=== PATIENT | female | born 1980 | race Caucasian/White ===

== ENCOUNTER 2017-06-20 11:56 | Inpatient (IN) | payer BC ==
[~2017-06-20] VITALS: Ht 167.6 cm; Wt 121.3 kg
[2017-06-20] MEDS ORDERED: IV NORMAL SALINE 1,000ML 1,000 ML IV ONE (12:15)
--- NOTE | 2017-06-20 12:34 | PHYS DOC ---
Past History Past Medical History: No Pertinent History, Other Past Surgical History: No Surgical History Smoking: Non-smoker Alcohol Use: None Drug Use: None Adult General Chief Complaint Chief Complaint: HEADACHE HPI HPI Patient is a pleasant 37-year-old female with a history of chronic headache for the last 3 weeks was recently diagnosed with potential pseudotumor cerebri with left eye blindness secondary to vision changes and increased CSF sigmoidoscopic sheets specifically the left greater than right. She is not received any specific treatment for pseudotumor cerebri came in for an evaluation of her headache. Her headache is worse with exertion and bending over, it is constant described as global. There is some changes in vision within the left eye at this continuously ebbing and flowing and noted by ophthalmology to be associated with papilledema. Patient denies any fevers, chills, neck pain, local trauma to her head. She further denies any recent URI symptoms, nausea, vomiting, diarrhea or chest pain. Review of Systems Review of Systems Constitutional: Denies fever or chills [] Eyes: Denies change in visual acuity, redness, or eye pain [] HENT: Denies nasal congestion or sore throat [] Respiratory: Denies cough or shortness of breath [] Cardiovascular: No additional information not addressed in HPI [] GI: Denies abdominal pain, vomiting, bloody stools or diarrhea, positive nausea [] : Denies dysuria or hematuria [] Musculoskeletal: Denies back pain or joint pain [] Integument: Denies rash or skin lesions [] Neurologic: positive headache, no weakness just blurred vision in left eye, known hx of papillary edema Endocrine: Denies polyuria or polydipsia [] All other systems were reviewed and found to be within normal limits, except as documented in this note. Physical Exam Physical Exam Vital signs on the chart are within normal Constitutional: Well developed, well nourished, no acute distress, non-toxic appearance. obviously uncomfortable.[] HENT: Normocephalic, atraumatic, bilateral external ears normal, oropharynx moist, no oral exudates, nose normal. [] Eyes: PERRLA, EOMI, conjunctiva normal, no discharge. [] Neck: Normal range of motion, no tenderness, supple, no stridor. [] Cardiovascular:Heart rate regular rhythm, no murmur [] Lungs & Thorax: Bilateral breath sounds clear to auscultation [] Abdomen: Bowel sounds normal, soft, no tenderness, no masses, no pulsatile masses. [] Skin: Warm, dry, no erythema, no rash. [] Back: No tenderness, no CVA tenderness. [] Extremities: No tenderness, no cyanosis, no clubbing, ROM intact, no edema. [] Neurologic: Alert and oriented X 3, normal motor function, normal sensory function, no focal deficits noted. [] Psychologic: Affect normal, judgement normal, mood normal. [] strike scale by hx and pe is only 1 based on vision changes. 1a. Level of consciousness: 0 = Alert; keenly responsive. 1 = Not alert; but arousable by minor stimulation to obey, answer, or respond. 2 = Not alert; requires repeated stimulation to attend, or is obtunded and requires strong or painful stimulation to make movements (not stereotyped). 3 = Responds only with reflex motor or autonomic effects or totally unresponsive , flaccid, and areflexic. 1b. LOC questions: 0 = Answers both questions correctly. 1 = Answers one question correctly. 2 = Answers neither question correctly. 1c. LOC commands: 0 = Performs both tasks correctly. 1 = Performs one task correctly. 2 = Performs neither task correctly. 2. Best gaze: 0 = Normal. 1 = Partial gaze palsy; gaze is abnormal in one or both eyes, but forced deviation or total gaze paresis is not present. 2 = Forced deviation, or total gaze paresis not overcome by the oculocephalic maneuver. 3. Visual: 0 = No visual loss. 1 = Partial hemianopia. 2 = Complete hemianopia. 3 = Bilateral hemianopia (blind including cortical blindness). 4. Facial palsy: 0 = Normal symmetrical movements. 1 = Minor paralysis (flattened nasolabial fold, asymmetry on smiling). 2 = Partial paralysis (total or near-total paralysis of lower face). 3 = Complete paralysis of one or both sides (absence of facial movement in the upper and lower face). 5. Motor arm: 0 = No drift; limb holds 90 (or 45) degrees for full 10 seconds. 1 = Drift; limb holds 90 (or 45) degrees, but drifts down before full 10 seconds ; does not hit bed or other support. 2 = Some effort against gravity; limb cannot get to or maintain (if cued) 90 ( or 45) degrees, drifts down to bed, but has some effort against gravity. 3 = No effort against gravity; limb falls. 4 = No movement. UN = Amputation or joint fusion, explain: 5a. Left arm 5b. Right arm 6. Motor le = No drift; leg holds 30-degree position for full 5 seconds. 1 = Drift; leg falls by the end of the 5-second period but does not hit bed. 2 = Some effort against gravity; leg falls to bed by 5 seconds, but has some effort against gravity. 3 = No effort against gravity; leg falls to bed immediately. 4 = No movement. UN = Amputation or joint fusion, explain: 6a. Left leg 6b. Right leg 7. Limb ataxia: 0 = Absent. 1 = Present in one limb. 2 = Present in two limbs. UN = Amputation or joint fusion 8. Sensory: 0 = Normal; no sensory loss. 1 = Smgy-jf-inkbfzlp sensory loss; patient feels pinprick is less sharp or is dull on the affected side; or there is a loss of superficial pain with pinprick , but patient is aware of being touched. 2 = Severe to total sensory loss; patient is not aware of being touched in the face, arm, and leg. 9. Best language: 0 = No aphasia; normal. 1 = Dsyv-kt-tvkjmwks aphasia; some obvious loss of fluency or facility of comprehension, without significant limitation on ideas expressed or form of expression. Reduction of speech and/or comprehension, however, makes conversation about provided materials difficult or impossible. For example, in conversation about provided materials, examiner can identify picture or naming card content from patient's response. 2 = Severe aphasia; all communication is through fragmentary expression; great need for inference, questioning, and guessing by the listener. Range of information that can be exchanged is limited; listener carries burden of communication. Examiner cannot identify materials provided from patient response. 3 = Mute, global aphasia; no usable speech or auditory comprehension. 10. Dysarthria: 0 = Normal. 1 = Pnws-ex-ixkueejb dysarthria; patient slurs at least some words and, at worst , can be understood with some difficulty. 2 = Severe dysarthria; patient's speech is so slurred as to be unintelligible in the absence of or out of proportion to any dysphasia, or is mute/anarthric. UN = Intubated or other physical barrier, explain: 11. Extinction and inattention (formerly neglect): 0 = No abnormality. 1 = Visual, tactile, auditory, spatial, or personal inattention or extinction to bilateral simultaneous stimulation in one of the sensory modalities. 2 = Profound maria fernanda-inattention or extinction to more than one modality; does not recognize own hand or orients to only one side of space. Current Patient Data Vital Signs Vital Signs Date Time Temp Pulse Resp B/P (MAP) Pulse Ox O2 Delivery O2 Flow Rate FiO2 06/20/17 12:12 98.6 100 95 Room Air EKG EKG [] Radiology/Procedures Radiology/Procedures [] [address] [address] IMAGING REPORT Signed PATIENT: AN DUNCAN ACCOUNT: [id number] : 1980 LOCATION: ER AGE: 37 SEX: F EXAM STATUS: REG ER ORD. PHYSICIAN: MIKEY CONTRERAS MD REASON: headache with pseudotumor cerebri PROCEDURE: CT HEAD WO CONTRAST EXAM: Head CT without contrast. HISTORY: Headache. Pseudotumor cerebri. TECHNIQUE: Computed tomographic images of the head were obtained without contrast. *One or more of the following individualized dose reduction techniques were utilized for this examination: 1. Automated exposure control. 2. Adjustment of the mA and/or kV according to patient size. 3. Use of iterative reconstruction technique. COMPARISON: Brain MRI dated 06/18/2017. FINDINGS: There is no acute or subacute extra-axial or intraparenchymal hemorrhage. There is no mass effect or midline shift. There is no hydrocephalus. The de jesus-white matter differentiation pattern is intact. The visualized portions of the orbits, paranasal sinuses and mastoid air cells are unremarkable. No suspicious calvarial lesion is seen. IMPRESSION: No acute intracranial findings. Electronically signed by: Kristi Bateman MD (06/20/2017 1:01 PM) [id number] DICTATED AND SIGNED BY: KRISTI BATEMAN MD DATE: 06/20/17 1300 CC: MIKEY CONTRERAS MD; LAYNE GARRETT APRN ~ Course & Med Decision Making Course & Med Decision Making Pertinent Labs and Imaging studies reviewed. (See chart for details) []She presents with pseudotumor cerebri and a headache it's been persistent for greater than 3 weeks. Her MRI results show papilledema and increased CSF food with likely intracranial hypertension. Patient would benefit from a lumbar puncture with opening pressures but unfortunately we do not have the wound and to do this right now. In the interim to treat her symptoms patient was given IV Acetasol might 500 mg, Decadron 10 mg, a liter of fluids and antiemetics. Patient tells me that their symptoms given during CC are improved. We reviewed labs and radiology reports with patient and any family at bedside. We discussed negative head CT with any intracranial mass or lesion. Patient's symptoms are markedly improved with Acetasol might and fluids and antiemetics and Decadron. [employer] note: Internal medicine printing services coordinator called at of the service initially paged at 1:27 PM Consult called back at called back at 1:27 PM Discussed the case I presented and they agreed with admission. Time of acceptance exhibited at 1:28 PM [employer] note: Neurology service production clerk [employer] called at of the service was initially called at 1:30 PM Consult called back at 1:32 PM Discussed the case I presented and they agreed with admission. They aspect set up a lumbar puncture by radiology to measure opening closing pressures as well as basic CSF lab work. I will set that up as part of the inpatient admission as we do not have the equipment here in the emergency department to complete the past. Dragon Disclaimer Dragon Disclaimer This electronic medical record was generated, in whole or in part, using a voice recognition dictation system. Departure Departure: Impression: Primary Impression: Pseudotumor cerebri Additional Impressions: Headache Papilledema, left eye Disposition: ADMITTED INPATIENT Admitting Physician: Shari Ricketts Condition: GUARDED Referrals: LAYNE GARRETT APRN (PCP) Problem Qualifiers MIKEY CONTRERAS MD Jun 20, 2017 12:33
[2017-06-20 12:38] LABS: BASO # 0.2 x10^3/uL (0.0-0.2); BASO % 2 % (0-3); EOS # 0.1 x10^3/uL (0.0-0.7); EOS % 1 % (0-3); HEMOGLOBIN 12.9 g/dL (12.0-15.5); LYMPH % 19 % (24-48); MEAN CORPUSCULAR HEMOGLOBIN 29 pg (25-35); MEAN CORPUSCULAR HGB CONC 34 g/dL (31-37); MEAN CORPUSCULAR VOLUME 84 fL (79-100); MONO # 0.7 x10^3/uL (0.0-1.1); MONO % 7 % (0-9); NEUT # 7.2 x10^3uL (1.8-7.7); NEUT % 71 % (31-73); PLATELET COUNT 482 x10^3/uL (140-400); RED CELL DISTRIBUTION WIDTH 15.3 % (11.5-14.5); WHITE BLOOD COUNT 10.2 x10^3/uL (4.0-11.0)
[2017-06-20 12:50] LABS: CALCIUM 9.1 mg/dL (8.5-10.1); CREATININE 0.8 mg/dL (0.6-1.0); GFR 79.9
[2017-06-20 12:51] LABS: POTASSIUM 4.3 mmol/L (3.5-5.1)
[2017-06-20] MEDS ORDERED: DEXAMETHASONE SOD PHOS 10 MG/ML VIAL IV ONE (13:00)
[2017-06-20] MEDS ORDERED: ONDANSETRON PF 4 MG/2 ML VIAL. IV ONE (13:00)
[2017-06-20] MEDS ORDERED: KETOROLAC 30 MG/ML VIAL. IV ONE (13:00)
--- NOTE | 2017-06-20 13:04 | RAD ---
EXAM: Head CT without contrast. HISTORY: Headache. Pseudotumor cerebri. TECHNIQUE: Computed tomographic images of the head were obtained without contrast. *One or more of the following individualized dose reduction techniques were utilized for this examination: 1. Automated exposure control. 2. Adjustment of the mA and/or kV according to patient size. 3. Use of iterative reconstruction technique. COMPARISON: Brain MRI dated 06/18/2017. FINDINGS: There is no acute or subacute extra-axial or intraparenchymal hemorrhage. There is no mass effect or midline shift. There is no hydrocephalus. The de jesus-white matter differentiation pattern is intact. The visualized portions of the orbits, paranasal sinuses and mastoid air cells are unremarkable. No suspicious calvarial lesion is seen. IMPRESSION: No acute intracranial findings. Electronically signed by: Kristi Dominguez MD (06/20/2017 1:01 PM) [place] [id number]
[2017-06-20 13:18] LABS: BILIRUBIN,URINE NEG (NEG); CLARITY,URINE HAZY; COLOR,URINE AMBER; GLUCOSE,URINE NEG (NEG)
[2017-06-20 13:19] LABS: BACTERIA,URINE 0 /HPF (0-FEW); NITRITE,URINE NEG (NEG); RBC,URINE 0 /HPF (0-2); SQUAMOUS EPITHELIAL CELL,UR FEW /LPF; UROBILINOGEN,URINE 0.2 mg/dL (0.2 mg/dL); WBC,URINE 0 /HPF (0-4)
[2017-06-20] MEDS ORDERED: ACETAMINOPHEN 325 MG TABLET PO PRN (13:45)
[2017-06-20] MEDS ORDERED: ONDANSETRON PF 4 MG/2 ML VIAL. IV PRN (13:45)
[2017-06-20] MEDS ORDERED: IV NORMAL SALINE 1,000ML 1,000 ML IV SCH (13:45)
[2017-06-20 15:13] VITALS: BP 164/62
[2017-06-20] MEDS ORDERED: TRAZ-90 PO (15:49)
[2017-06-20] MEDS ORDERED: MONT10TA9 PO (15:49)
[2017-06-20] MEDS ORDERED: ALBU18HF IH (15:49)
[2017-06-20] MEDS ORDERED: KETOROLAC 30 MG/ML VIAL. IV PRN (16:30)
--- NOTE | 2017-06-20 17:02 | NUR ---
Pt brought to rm 120 by EMS via gurney. Belongings checked, vitals taken. Pt resting comfortably.
[2017-06-20] MEDS ORDERED: traZODone 100 MG TABLET. PO PRN (17:15)
[2017-06-20] MEDS ORDERED: ALBUTEROL SULFATE 8GM INHALER. IH PRN (17:15)
[2017-06-20] MEDS ORDERED: ALBUTEROL SULFATE 2.5 MG/3 ML NEBU. NEB PRN (17:30)
--- NOTE | 2017-06-20 17:57 | HP ---
ADMIT DATE: 06/20/2017 REASON FOR ADMISSION: Severe headache, papilledema, and probable pseudotumor cerebri. HISTORY OF PRESENT ILLNESS: This is a 37-year-old female who has had problems with headaches and some problems with her bad headaches as well as visual problems including a blind spot and graying of vision, which she noticed a few times last week. She did go to the eye doctor who found papilledema and recommended an MRI of her brain, which does show evidence of probable pseudotumor cerebri and she is scheduled for a lumbar puncture tomorrow. PAST MEDICAL HISTORY: She has had cryptogenic pneumonia 03/10/2017. She was hospitalized for 9 days and she has been on prednisone quite a bit, and asthma. ALLERGIES: AZITHROMYCIN. MEDICATIONS: Reviewed and are available on the MAR. 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 She does not smoke or drink. REVIEW OF SYSTEMS: The patient has had a cough for quite some time after Kalani. It did resolve itself. As far as current symptoms, she has had some blurred vision, double vision, headaches, ringing in her ears for the last year, ringing in her ears with the sensation of the pulses in her ear. Weight has not changed. She has slight sore throat. Positive for light flashes, blind spot in the left eye. She has had some temporary blindness in both eyes, some nausea, some dizziness. Of note, she was on control for 10 years, but she has been off for 8 years. She does not have any history of growth hormone, tetracycline, or excessive vitamin A. REVIEW OF SYSTEMS: As stated. OBJECTIVE: VITAL SIGNS: Blood pressure is 145/68, pulse 78, respirations 20, pulse ox 96% on room air. Height 66 inches, weight 267.44 pounds. HEENT: Pupils were equal, reactive to light. Extraocular muscles were intact. Funduscopic exam just recently done by the multilith operator, so not repeated, was not photophobic. Her nose was patent. Throat was clear. NECK: Supple, without adenopathy. LUNGS: Clear to auscultation. CARDIOVASCULAR: Regular rhythm and rate. ABDOMEN: Soft, nontender. EXTREMITIES: Without edema. NEUROLOGIC: She is currently intact. She does have a left upper quadrant hemianopsia and some blurred vision currently. IMAGING: MRI done of the brain on 06/18/2017, shows increased CSF signal of the optic nerve sheaths with most likely intracranial hypertension, also maxillary sinus with mucosal retention cysts. ASSESSMENT: 1. Elevated intracranial hypertension. 2. Left upper quadrant hemianopsia. 3. Transient blindness. 4. Severe headaches. 5. Morbid obesity. 6. Asthma. PLAN: The patient will have a lumbar puncture tomorrow. She had Diamox in the ER, which greatly relieved her headache, can do that every 6 hours as needed, but will defer to Dr. Saldana if he wants to try something different and she has a neurology consult today. TATUM KEITH DO DR: TWIN/jabari JOB#: [id number] / [id number]
[2017-06-20 19:07] VITALS: BP 124/72
[2017-06-20] MEDS: hydroCHLOROthiazide 12.5 MG CAPSULE PO SCH (19:45)
[2017-06-20] MEDS: LISINOPRIL 10 MG TABLET PO SCH (19:46)
[2017-06-20] MEDS ORDERED: MONTELUKAST 10 MG TABLET. PO SCH (21:00)
[2017-06-20 23:11] VITALS: BP 148/78
[2017-06-21 05:57] VITALS: BP 133/68
--- NOTE | 2017-06-21 06:03 | NUR ---
Patient alert x4. VSS. Denied any nausea or vomiting, or changes in vision at this time, Complained of some headache throughout the night, Diamox administrated, reported improvement after administration. Patient informed regarding Lumbar Puncture. Will continue monitoring.
[2017-06-21 07:05] LABS: ALBUMIN 3.5 g/dL (3.4-5.0); ALBUMIN/GLOBULIN RATIO 0.8 (1.0-1.7); CALCIUM 9.4 mg/dL (8.5-10.1); GFR 61.7; MAGNESIUM 2.2 mg/dL (1.8-2.4); POTASSIUM 3.7 mmol/L (3.5-5.1); TOTAL BILIRUBIN 0.3 mg/dL (0.2-1.0); TOTAL PROTEIN 7.7 g/dL (6.4-8.2)
[2017-06-21 08:08] LABS: BASO % 0 % (0-3); EOS % 0 % (0-3); HEMATOCRIT 40.1 % (36.0-47.0); LYMPH # 1.3 x10^3/uL (1.0-4.8); LYMPH % 10 % (24-48); MEAN CORPUSCULAR HEMOGLOBIN 28 pg (25-35); MEAN CORPUSCULAR HGB CONC 32 g/dL (31-37); MEAN CORPUSCULAR VOLUME 86 fL (79-100); MONO # 0.4 x10^3/uL (0.0-1.1); MONO % 4 % (0-9); NEUT # 10.8 x10^3uL (1.8-7.7); NEUT % 86 % (31-73); PLATELET COUNT 498 x10^3/uL (140-400); RED BLOOD COUNT 4.68 x10^6/uL (3.50-5.40); RED CELL DISTRIBUTION WIDTH 15.4 % (11.5-14.5); WHITE BLOOD COUNT 12.6 x10^3/uL (4.0-11.0)
[2017-06-21] MEDS: LISINOPRIL 10 MG TABLET PO SCH (09:00)
[2017-06-21] MEDS: hydroCHLOROthiazide 12.5 MG CAPSULE PO SCH (09:00)
[2017-06-21 09:55] LABS: CSF CLARITY CLEAR; CSF COLOR COLORLESS
--- NOTE | 2017-06-21 10:16 | RAD ---
EXAM: FLUOROSCOPICALLY GUIDED LUMBAR PUNCTURE. 06/21/2017 HISTORY: Pseudotumor cerebri. TECHNIQUE: The procedure along with its risks and benefits were discussed with the patient and written and verbal consent were obtained. A timeout procedure was performed. The overlying skin was sterilely prepped and draped in the usual sterile fashion. A small amount of 1% lidocaine was used for local anesthesia. Under fluoroscopic guidance, a 22-gauge spinal needle was advanced into the thecal sac at the L2-L3 level. There was spontaneous return of clear cerebrospinal fluid. Opening pressure is 25 cm H20. Subsequently 16 mL CSF were collected and sent for analysis. Closing pressure was obtained at 13 cm H20. Instrumentation was withdrawn and a sterile dressing placed. There were no immediate complications. One fluoroscopic image was obtained. Fluoroscopy time 0.9 minutes. The patient left the department in stable condition. Postprocedural instructions were provided. IMPRESSION: 1. Successful fluoroscopically guided lumbar puncture. 2. Opening pressure, 25 cm H20. 3. Closing pressure, 13 cm H20.
[2017-06-21 10:24] LABS: CSF WBC COUNT 4
[2017-06-21 10:25] LABS: CSF RBC COUNT 3
[2017-06-21 10:47] LABS: CSF MON % 100 %; CSF PMN % 0 %
[2017-06-21 10:48] LABS: CSF OTHER % 0 %
[2017-06-21 10:58] VITALS: BP 127/85
[2017-06-21] MEDS ORDERED: LISI10TA2 PO (12:27)
[2017-06-21] MEDS ORDERED: HYDR12.53 PO (12:27)
[2017-06-21] MEDS ORDERED: ACET500C15 PO (12:27)
--- NOTE | 2017-06-21 12:37 | CONS ---
DATE OF CONSULTATION: 06/20/2017 REFERRING PHYSICIAN: Dr. Ricketts REASON FOR CONSULTATION: Severe headaches. HISTORY OF PRESENT ILLNESS: This is a 37-year-old female who was admitted to Emergency Room after she presented with a 3-week history of severe global headaches associated with intermittent visual disturbances, described as complete loss of vision, lasted a few minutes. According to the patient, the symptoms have worsened in the last week and she would have daily headaches. She described headache as severe pressure in the head aggravated by physical activities and walking. She described her visual disturbances as seeing blind spots, mainly on the left side and sometimes complete blindness of both eyes. She denies nausea, vomiting, photophobia or phonophobia. She was seen by "eye doctor" and she was told she had swelling of the optic nerve more prominent on the left side. Brain MRI performed at [facility] revealed evidence of papilledema and decreased CSF and enhancement of the left optic nerve consistent with papilledema and intracranial hypertension. I received a call from the ER physician at [facility] and I recommended to the patient to have spinal tap and measuring the opening and closing pressure, but unfortunately it was not done and the procedure has been scheduled for tomorrow to be done by radiologist under fluoroscope. The patient was given Solu-Medrol and IV fluids with IV acetazolamide. Initial nonenhanced head CT scan revealed no evidence of acute intracranial process. Currently, the patient stated her headache has improved and her vision has been clear. She denies diplopia, dysphagia, dysarthria, weakness or paresthesia. PAST MEDICAL HISTORY: Significant for cryptogenic pneumonia diagnosed on 03/10/2017, obesity, asthma, otherwise unremarkable. SOCIAL HISTORY: The patient denies smoking, alcohol drinking, or illicit drug use. 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 CURRENT MEDICATIONS: Singulair 10 mg at bedtime, albuterol inhaler, albuterol inhaler, trazodone 100 mg at bedtime, acetazolamide 500 mg IV q.6h. p.r.n. and Toradol 30 mg q.6h. p.r.n. for severe headaches alternate with Tylenol 650 mg q. 4 hours p.r.n. for headaches or fever and Zofran 4 mg q.4h. IV p.r.n. for nausea and vomiting. ALLERGIES: AZITHROMYCIN. REVIEW OF SYSTEMS: A 10-point review of system was performed and consistent with intermittent headaches with visual disturbances as described above, otherwise unremarkable. PHYSICAL EXAMINATION: GENERAL: Obese white female, not in acute distress. She weighs 267.4 pounds. VITAL SIGNS: Blood pressure 164/62, respiratory rate 20, pulse is 81, temperature 97.9, oxygen saturation 96% on room air. HEENT: Normocephalic, atraumatic, otherwise unremarkable. NECK: Supple. Negative for carotid bruit, lymphadenopathy or thyromegaly. LUNGS: Clear to A and P. CARDIOVASCULAR: Regular rate and rhythm, normal S1, S2. There is no S3, S4 or murmur. ABDOMEN: Soft. Bowel sounds positive. EXTREMITIES: Negative for cyanosis, clubbing or pitting edema. NEUROLOGICAL EXAM: Mental Status: The patient is alert and oriented x 3. The speech is fluent. There is no language dysfunction. Memory, judgment, and abstract thinking are normal. The patient denies hallucination or delusion. CRANIAL NERVES: Visual rodriguez are full. The pupils are reactive to light and accommodation. Extraocular movements are intact. There is no nystagmus. There is no facial motor or sensory deficit. Hearing is intact bilaterally. The palate is elevated symmetrically. Sternocleidomastoid muscles are powerful bilaterally. The patient shrugs her shoulders symmetrically and protrudes her tongue in the midline without fasciculation or atrophy. MOTOR: No focal muscle bulk was seen. The tone is normal. The strength is 5/5 throughout. Sensory examination revealed normal pinprick, light touch, vibratory and position senses. Deep tendon reflexes were symmetric and active without pathology responses. Gait and coordination are normal. LABORATORY DATA: CBC revealed white blood cells of 10.2 thousand, hemoglobin 12.9, hematocrit 38, platelet count of 482,000. Chemistry revealed sodium of 138, potassium 4.3, chloride 105, CO2 29. BUN 17, creatinine 0.8, glucose is 84 and calcium 9.1. Urinalysis is negative for urinary tract infections DIAGNOSTIC: Initial nonenhanced head CT scan revealed no evidence of acute intracranial process otherwise unremarkable. IMPRESSION: 1. Severe headaches with papilledema, more prominent on the left side and confirmed by MRI brain MRI likely represent intracranial hypertension and possible intracranial hypertension/pseudotumor cerebri. 2. Obesity. 3. Asthma. 4. Hypertension. RECOMMENDATIONS: 1. Lumbar puncture to obtain opening and closing pressure. If the opening pressure is high, we will take off at least 20-30 mL of spinal fluid out. If the opening pressure is high, would take of 20-30 mL of spinal fluid and continues with Diamox. 2. We will start the patient on a small dose of lisinopril and hydrochlorothiazide at 10/12.5 mg daily. 3. Aggressive weight loss. 4. Continue with other medications for asthma. 5. Continue with current care was initiated by Dr. Ricketts. M Barrie MENDOZA MD DR: BREN/jabari JOB#: [id number] / [id number]
[2017-06-21] MEDS ORDERED: FLU VACC QS2017-18 (36MOS+)/PF 0.5 ML SYRINGE. VAX IM ONE (14:00)
--- NOTE | 2017-06-21 14:58 | DS ---
DATE OF DISCHARGE: 06/21/2017 DISCHARGE DIAGNOSES: 1. Intracranial hypertension/pseudotumor to free bite. 2. Papilledema. 3. Left upper quadrant hemianopsia, resolved. 4. Transient blindness, resolved. 5. Severe headaches, improved. 6. Morbid obesity. 7. Asthma. HOSPITAL COURSE: This is a 37-year-old female who was found to have papilledema by her eye doctor and an MRI was done showing evidence of intracranial hypertension/pseudotumor cerebri. She had a severe headache and came to the Emergency Room. She was treated with Diamox which greatly relieved her headache. She had a spinal tap on 06/21/2017, which showed an elevated opening pressure and some spinal fluid was drawn off. She was feeling much, much better on 06/21/2017 and was able to discharge. She will need close followup as an outpatient. She was also found to have elevated blood pressure and was started on hydrochlorothiazide and lisinopril by Dr. Saldana. OBJECTIVE: VITAL SIGNS: Blood pressure 127/85, pulse 76, respirations 20, pulse ox 97% on room air. HEENT: Tongue was moist. NECK: Supple. LUNGS: Clear. CARDIOVASCULAR: Regular rhythm and rate. LABORATORY DATA: Slightly elevated white count 12.6. Chemistry fairly unremarkable, slightly elevated glucose, has had a steroid yesterday. Cerebral spinal fluid, slightly elevated glucose of 84 and total protein 52.7. PLAN: Discharge home. Will be on p.o. Diamox. Will see Dr. Saldana in 1-2 weeks. Will keep track of her blood pressures and we will work on her weight. TATUM KEITH DO DR: TWIN/jabari JOB#: [id number] / [id number]
--- NOTE | 2017-06-21 15:06 | NUR ---
Patient discharged to home for self care. IV discontinued with no complications, dressing applied. Patient left unit in stable condition via ambulation.
--- NOTE | 2017-06-21 20:07 | PN ---
DATE: REFERRING PHYSICIAN: Dr. Ricketts. SUBJECTIVE: The patient denies any headaches this morning. She denies any new medical or neurological complaints. OBJECTIVE: GENERAL: Obese female, not in acute distress. VITAL SIGNS: Blood pressure 133/68, respiratory rate 16, pulse is 81, temperature 97.9, oxygen saturation 98% on room air. HEENT: Normocephalic, atraumatic, otherwise unremarkable. NECK: Supple. Negative for carotid bruit, lymphadenopathy or thyromegaly. LUNGS: Clear to A and P. CARDIOVASCULAR: Regular rate and rhythm, normal S1, S2. ABDOMEN: Soft. Bowel sounds positive. EXTREMITIES: Negative for cyanosis, clubbing or pitting edema. NEUROLOGICAL: Mental Status: The patient is alert and oriented x 3. Speech is fluent. There is no language dysfunction. Memory, judgment, and abstract thinking are normal. The patient denies hallucination or delusion. Cranial nerves are intact including visual rodriguez. Motor examination revealed no focal muscle bulk was seen. The tone was normal. The strength was 5/5 throughout. Sensory examination revealed normal pinprick, light touch, vibratory and position senses. Deep tendon reflexes are symmetric and active without pathology responses. Gait and coordination are normal. LABORATORY DATA: CBC revealed white blood cells of 12.6, hemoglobin 13, hematocrit 40.1, and platelet count 498,000. Chemistry: Sodium of 135, potassium 3.7, chloride 104, CO2 18, BUN 13, creatinine 1, glucose 116. Liver enzymes are normal. IMPRESSION: 1. Recurrent severe headaches with optic nerve swelling -- papilledema, more prominent on the left side with intermittent visual disturbances and sometimes visual loss, likely represent pseudotumor cerebri/intracranial hypertension. 2. Morbid obesity. 3. Depression/anxiety. 4. Asthma. RECOMMENDATIONS: 1. The patient has been scheduled to have a spinal tap this morning and measure the opening and closing pressure to initiate diagnosis of pseudotumor cerebri/intracranial hypertension. 2. We will continue with current management for headaches, hypertension, and continue with Diamox. Further management depends on the result of the opening pressure while doing the spinal tap. M Barrie MENDOZA MD DR: BREN/jabari JOB#: [id number] / [id number]
[2017-06-25 16:08] LABS: ALBUMIN,SERUM 4.2 g/dL (3.5-5.5); CSF IGG INDEX 0.7 (0.0-0.7)
== END 2017-06-21 13:50 | disposition home or self-care (01) | DRG 103 ==
LOC: ER 11:56 → 1 SOUTH 13:27
PROVIDERS: ADMIT Family Medicine; ATTEND Family Medicine
PROC: 009U3ZZ Drainage of Spinal Canal, Percutaneous Approach (ICD-10-PCS; principal; 2017-06-21)
PROC: B01B1ZZ Fluoroscopy of Spinal Cord using Low Osmolar Contrast (ICD-10-PCS; 2017-06-21)
DX: G93.2 Benign intracranial hypertension (principal); H47.10 Unspecified papilledema; E66.01 Morbid (severe) obesity due to excess calories; H53.462 Homonymous bilateral field defects, left side; Z68.41 Body mass index [BMI] 40.0-44.9, adult; F32.9 Major depressive disorder, single episode, unspecified; F41.9 Anxiety disorder, unspecified; J45.909 Unspecified asthma, uncomplicated; I10 Essential (primary) hypertension; H54.62 Unqualified visual loss, left eye, normal vision right eye
CPT/HCPCS: 36415; 62270; 70450; 80048; 80053; 81001; 81025; 82787; 82945; 83735; 84157; 85025; 85610; 85730; 87071; 87075; 89051; 90686; J1100; J1120; J1885; J2405; J7030